=== PATIENT | female | born 1995 | race American Indian/Alaskan Native ===

== ENCOUNTER 2017-11-09 11:02 | Emergency (ER) | payer MEDICAID ==
[2017-11-09 11:39] LABS: Basophils % (Auto) 0.3 % (0.0-1.8); Eosinophils # (Auto) 0.1 K/mm3 (0.0-0.4); Eosinophils % (Auto) 2.5 % (0.0-4.3); Hematocrit 34.1 % (30.3-42.9); Hemoglobin 11.2 gm/dl (10.1-14.3); Lymphocytes # (Auto) 1.2 K/mm3 (1.2-5.4); Lymphocytes % (Auto) 20.9 % (13.4-35.0); Mean Corpuscular HGB Conc 33 % (30-34); Mean Corpuscular Hemoglobin 27 pg (28-32); Mean Corpuscular Volume 81 fl (79-97); Monocytes # (Auto) 0.7 K/mm3 (0.0-0.8); Monocytes % (Auto) 12.3 % (0.0-7.3); Platelet Count 171 K/mm3 (140-440); Red Blood Count 4.21 M/mm3 (3.65-5.03); Red Cell Distribution Width 15.8 % (13.2-15.2)
[2017-11-09 12:00] LABS: Bacteria,Urine 1+ /HPF (Negative); Bilirubin,Urine NEG (Negative); Blood,Urine MOD (Negative); Color,Urine Yellow (Yellow); Hyaline Casts,Urine 1 /LPF; Mucus,Urine FEW /HPF; Nitrite,Urine NEG (Negative); Protein,Urine <15 mg/dL mg/dL (Negative); Urobilinogen,Urine < 2.0 mg/dL (<2.0)
--- NOTE | 2017-11-09 14:06 | Ultrasound Report ---
OB ULTRASOUND ULTRASOUND OB TRANSVAGINAL History vaginal bleeding during . Technique: Transabdominal and transvaginal ultrasound with Doppler interrogation. Gestation: Single Position: Breech Amniotic Fluid: Within normal limits DEXTER = not measured cm Placenta: Posterior Placental Grade: 0 Heart Rate: 146 BPM Cervix: 3.5 cm. There is trace fluid in the endocervical canal. BPD: 3.9 cm = 18 w 0 d HC: 14.8 cm = 18 w 0 d AC: 11.7 cm = 17 w 3 d FL: 2.5 cm = 17 w 4 d HC/AC Ratio: 1.3 Cephalic Index: 83.2 Estimated Weight: 200 grams Clinical age = 18 w 1 d EDC: 04/11/18 US Gest. Age = 17 w 5 d EDC: 04/14/18 IMPRESSION: Viable, single intrauterine as described.
[2017-11-09 16:12] VITALS: BP 124/69
== END 2017-11-09 19:20 | disposition left against medical advice (07) ==
LOC: ED 11:02
DX: O26.892 Other specified pregnancy related conditions, second trimester (principal); R10.2 Pelvic and perineal pain; O46.92 Antepartum hemorrhage, unspecified, second trimester; Z3A.18 18 weeks gestation of pregnancy; Z53.21 Procedure and treatment not carried out due to patient leaving prior to being seen by health care provider
CPT/HCPCS: 36415; 76805; 76817; 81001; 84702; 85025; 86850; 86900; 86901